=== PATIENT | female | born 1975 | race American Indian/Alaskan Native ===

== ENCOUNTER 2016-12-16 07:48 | Emergency (ER) | payer BC ==
[2016-12-16 07:48] VITALS: BMI 23.6
[2016-12-16 07:55] VITALS: BP 106/72; PULSE 71; RESP 20; TEMP 97.3; O2SAT 100
--- NOTE | 2016-12-16 09:11 | ED PDOC ---
HPI: General Adult Time Seen by Provider: 12/16/16 09:07 Chief Complaint (Nursing): Back Pain Chief Complaint (Provider): back pain History Per: Patient History/Exam Limitations: no limitations Additional Complaint(s): 41yo female w/ Hx disc herniation complaining of intermittent right lower back pain for 2 years. States in 2015 she received an injection for the back pain which helped her and since her daughter is a patient in the ED she chose to be seen as well. No incontinence, numbness or tingling. This episode of back pain has been ongoing for 3 days and is exactly the same as her chronic pain. States she took Tylenol which helped a little bit. She's been seen by other providers in the past for the same complaint. Also reports a complaint of headache since she walked into the ED. Reports history of migraines. No chest pain, shortness of breath. Tertiary complaint of left lower quadrant pain for 3 days. Pain is constant and associated with frequent urination for 1 year. Against Medical Advice - AMA Patient Left Against Medical Advice: The patient declines admission to the hospital and wishes to leave the Emergency Department. This action is against my medical advice. This decision was made with informed refusal. The patient was told that admission to the hospital is necessary. Explanation of the reasons why were discussed. The risks of leaving were explained to the patient and include, but are not limited to, worsening of known or currently unknown conditions, permanent disability and from undiagnosed or untreated conditions. The patient has the capacity to make this informed decision and understands my explanation of the current medical problem and risks of leaving. The patient voluntarily accepts these risks and signed an AMA form documenting our conversation. The patient was given the opportunity to ask questions and reconsider. The patient was encouraged to return to the Emergency Department at any time for further care. Past Medical History Reviewed: Historical Data, Nursing Documentation, Vital Signs Vital Signs: Last Vital Signs Temp 97.3 F L 12/16/16 07:54 Pulse 71 12/16/16 07:54 Resp 20 12/16/16 07:54 BP 106/72 12/16/16 07:54 Pulse Ox 100 12/16/16 13:44 - Medical History PMH: Back Problems, Gastritis, Migraine - Surgical History Surgical History: No Surg Hx - Family History Family History: States: Unknown Family Hx - Living Arrangements Living Arrangements: With Family - Immunization History Hx Tetanus Toxoid Vaccination: No Hx Influenza Vaccination: No Hx Pneumococcal Vaccination: No - Home Medications Home Medications: Ambulatory Orders Medication Instructions Recorded Famotidine [Pepcid] 20 mg PO DAILY #30 tab 07/14/16 - Allergies Allergies/Adverse Reactions: Allergies Allergy/AdvReac Type Severity Reaction Status Date / Time No Known Allergies Allergy Verified 12/16/16 07:58 Review of Systems ROS Statement: Except As Marked, All Systems Reviewed And Found Negative Gastrointestinal: Positive for: Abdominal Pain Genitourinary Female: Positive for: Frequency. Negative for: Incontinence Musculoskeletal: Positive for: Back Pain Neurological: Positive for: Headache. Negative for: Weakness, Numbness Physical Exam - Reviewed Nursing Documentation Reviewed: Yes Vital Signs Reviewed: Yes - Physical Exam Appears: Positive for: Well, Non-toxic, No Acute Distress Head Exam: Positive for: ATRAUMATIC, NORMAL INSPECTION, NORMOCEPHALIC Skin: Positive for: Warm, Dry Eye Exam: Positive for: EOMI, PERRL Cardiovascular/Chest: Positive for: Regular Rate, Rhythm Respiratory: Positive for: Normal Breath Sounds. Negative for: Rales, Rhonchi, Wheezing Gastrointestinal/Abdominal: Positive for: Soft, Tenderness (left lower quadrant) . Negative for: Guarding, Rebound Back: Positive for: Vertebral Tenderness (lumbar spine and paraspinal ) Extremity: Positive for: Normal ROM. Negative for: Tenderness Neurologic/Psych: Positive for: Alert, Oriented - Laboratory Results Result Diagrams: 12/16/16 11:17 12/16/16 11:17 - ECG O2 Sat by Pulse Oximetry: 100 (RA) Pulse Ox Interpretation: Normal - Progress Re-evaluation Time: 13:00 Condition: Re-examined, Improved Medical Decision Making Medical Decision Makin Differential diagnoses: back pain: acute on chronic back pain, disc herniation. left lower quadrant pain: ovarian cyst uti related complication, diverticulitis, headache: recurrent migraine headache. Plan: -labs -US Pelvis/Transvag -Reglan -Toradol -IV Fluids -reassess Disposition - Clinical Impression Clinical Impression: Back pain, Abdominal pain, Migraine headache - Patient ED Disposition Is Patient to be Admitted: No Doctor Will See Patient In The: Office Counseled Patient/Family Regarding: Studies Performed, Diagnosis, Need For Followup - Disposition Referrals: [facility] [Outside] Disposition: Against Medical Advice Disposition Time: 13:20 Condition: GOOD Additional Instructions: Follow up with your PCP in 2-3 days. Return for worsening Instructions: Migraine Headache (ED), Abdominal Pain (ED), Chronic Back Pain ( ED) Forms: [facility] ED School/Work Excuse Additional Comments - Additional Comments Additional Comments: Scribe Attestation: Documented by Mayito Dominguez acting as a scribe for Chase Kohler MD. Provider Scribe Attestation: All medical record entries made by the Scribe were at my direction and personally dictated by me. I have reviewed the chart and agree that the record accurately reflects my personal performance of the history, physical exam, medical decision making, and the department course for this patient. I have also personally directed, reviewed, and agree with the discharge instructions and disposition.
[2016-12-16] MEDS ORDERED: Sodium Chloride 0.9% 1,000 ML IV STA (09:38)
[2016-12-16 11:27] LABS: EOS # 0.1 K/uL (0.0-0.7); EOS % 1.3 % (0.0-4.0); HEMATOCRIT 35.7 % (34.0-47.0); LYMPH # 1.5 K/uL (1.0-4.3); LYMPH % 31.7 % (20.0-40.0); MEAN CELL VOLUME 92.9 fl (81.0-99.0); MEAN CORPUSCULAR HEMOGLOBIN 30.9 pg (27.0-31.0); MEAN CORPUSCULAR HGB CONC 33.3 g/dL (33.0-37.0); MEAN PLATELET VOLUME 8.4 fl (7.2-11.7); MONO # 0.3 K/uL (0.0-0.8); MONO % 6.3 % (0.0-10.0); NEUT # 2.8 K/uL (1.8-7.0); NEUT % 59.7 % (50.0-75.0); NRBC % 0.1 % (0.0-0.0); RED CELL DISTRIBUTION WIDTH 13.2 % (11.5-14.5); WHITE BLOOD COUNT 4.7 K/uL (4.8-10.8)
[2016-12-16 11:54] LABS: GFR AFRICAN-AMERICAN > 60
[2016-12-16 11:55] LABS: BLOOD UREA NITROGEN 12 mg/dl (7-17); CALCIUM 8.8 mg/dL (8.4-10.2); CARBON DIOXIDE 26 mmol/L (22-30); GLUCOSE,RANDOM 78 mg/dL (65-105)
[2016-12-16 12:06] LABS: CHLORIDE 105 mmol/L (98-107); POTASSIUM 3.7 MMOL/L (3.6-5.0); SODIUM 141 mmol/l (132-148)
--- NOTE | 2016-12-17 07:24 | CARD ---
APPROVED REPORT EKG Measurement Heart [id number] CT [id number] <Conclusion> Normal sinus rhythm Normal ECG
== END 2016-12-16 14:09 | disposition left against medical advice (07) ==
LOC: H.ER 07:48
DX: M54.5 Low back pain (principal); G43.909 Migraine, unspecified, not intractable, without status migrainosus; R10.32 Left lower quadrant pain
CPT/HCPCS: 80048; 81025; 85025; 93005; 96365; 96375; 99284; J1885; J2765; J7040

== ENCOUNTER 2017-09-30 18:03 | Emergency (ER) | payer BC ==
[2017-09-30 18:03] VITALS: BMI 23.6
[2017-09-30 18:08] VITALS: O2SAT 100
[2017-09-30] MEDS ORDERED: Sodium Chloride 0.9% 1,000 ML IV STA (18:28)
--- NOTE | 2017-09-30 18:28 | ED PDOC ---
HPI: Abdomen Time Seen by Provider: 09/30/17 18:15 Chief Complaint (Nursing): Abdominal Pain Chief Complaint (Provider): Abdominal History Per: Patient Additional Complaint(s): 42 yo female, PMH of Gastritis and Migraines, presents to ED with complaints of Umbilical pain radiating to the suprapubic area and right flank pain x 2 hours. Pt denie snay nausea or vomiting. No fever or chills. pt reports strong urge to urinate; however, unable to do so. Past Medical History Reviewed: Nursing Documentation, Vital Signs Vital Signs: Last Vital Signs Temp 97.9 F 09/30/17 18:35 Pulse 65 09/30/17 18:35 Resp 20 09/30/17 18:35 BP 117/78 09/30/17 18:35 Pulse Ox 100 09/30/17 18:35 - Medical History PMH: Back Problems, Gastritis, Migraine - Family History Family History: States: Unknown Family Hx - Living Arrangements Living Arrangements: With Family - Social History Current smoker - smoking cessation education provided: No Alcohol: Social Drugs: Denies - Immunization History Hx Tetanus Toxoid Vaccination: No Hx Influenza Vaccination: No Hx Pneumococcal Vaccination: No - Home Medications Home Medications: Ambulatory Orders Medication Instructions Recorded Famotidine [Pepcid] 20 mg PO DAILY #30 tab 07/14/16 - Allergies Allergies/Adverse Reactions: Allergies Allergy/AdvReac Type Severity Reaction Status Date / Time No Known Allergies Allergy Verified 12/16/16 07:58 Review of Systems ROS Statement: Except As Marked, All Systems Reviewed And Found Negative Gastrointestinal: Positive for: Abdominal Pain Genitourinary Female: Positive for: Frequency Physical Exam - Reviewed Nursing Documentation Reviewed: Yes Vital Signs Reviewed: Yes - Physical Exam Appears: Positive for: Non-toxic, No Acute Distress, Uncomfortable Head Exam: Positive for: ATRAUMATIC, NORMAL INSPECTION, NORMOCEPHALIC Skin: Positive for: Normal Color, Warm, DRY Eye Exam: Positive for: EOMI, Normal appearance, PERRL ENT: Positive for: Normal ENT Inspection Neck: Positive for: Normal, Painless ROM Cardiovascular/Chest: Positive for: Regular Rate, Rhythm Respiratory: Positive for: CNT, Normal Breath Sounds Gastrointestinal/Abdominal: Positive for: Bowel Sounds, Soft, Tenderness ( suprapubic) Back: Positive for: Normal Inspection Extremity: Positive for: Normal ROM Neurologic/Psych: Positive for: Alert, Oriented - Laboratory Results Result Diagrams: 09/30/17 18:55 - ECG O2 Sat by Pulse Oximetry: 100 Medical Decision Making Medical Decision Making: IV access established and diagnostics ordered IVF started, as well as Morphine and Zorfan Cath specimen obtained to relieve Pt and obtained UA specimen. 400 cc obtained Case endorsed to BISHOP Solo at 1999 pending diagnostic eview and re-eval Disposition - Clinical Impression Clinical Impression: Renal colic - Patient ED Disposition Is Patient to be Admitted: Transfer of Care - Disposition Disposition: Transfer of Care Disposition Time: 19:27 Condition: STABLE Forms: [facility] (Chinese)
[2017-09-30] MEDS ORDERED: Morphine 4 MG/ML VIAL ONE (18:30)
[2017-09-30 18:43] VITALS: BP 117/78; PULSE 65; RESP 20; TEMP 97.9
[2017-09-30 18:54] LABS: BASO # 0.1 K/uL (0.0-0.2); BASO % 1.2 % (0.0-2.0); EOS # 0.1 K/uL (0.0-0.7); EOS % 1.3 % (0.0-4.0); HEMOGLOBIN 13.6 g/dL (12.0-16.0); LYMPH # 2.7 K/uL (1.0-4.3); LYMPH % 42.3 % (20.0-40.0); MEAN CELL VOLUME 90.1 fl (81.0-99.0); MEAN CORPUSCULAR HEMOGLOBIN 29.8 pg (27.0-31.0); MEAN CORPUSCULAR HGB CONC 33.1 g/dL (33.0-37.0); MEAN PLATELET VOLUME 8.6 fl (7.2-11.7); MONO # 0.5 K/uL (0.0-0.8); NEUT # 3.1 K/uL (1.8-7.0); NEUT % 48.2 % (50.0-75.0); NRBC % 0.1 % (0.0-0.0); RBC 4.57 Mil/uL (3.80-5.20); RED CELL DISTRIBUTION WIDTH 13.1 % (11.5-14.5); WHITE BLOOD COUNT 6.4 K/uL (4.8-10.8)
[2017-09-30 19:15] LABS: ALBUMIN 4.5 g/dL (3.5-5.0); CALCIUM 9.7 mg/dL (8.4-10.2); GFR AFRICAN-AMERICAN > 60; GFR NON-AFRICAN AMERICAN > 60
[2017-09-30 19:20] LABS: URINE BILIRUBIN NEGATIVE (NEGATIVE); URINE BLOOD SMALL (NEGATIVE); URINE CLARITY CLEAR (Clear); URINE COLOR STRAW (YELLOW); URINE GLUCOSE (UA) NEG (Normal); URINE LEUKOCYTE ESTERASE NEG Leu/uL (Negative); URINE NITRATE NEGATIVE (NEGATIVE); URINE PROTEIN NEGATIVE (NEGATIVE); URINE UROBILINOGEN 0.2-1.0 mg/dL (0.2-1.0)
[2017-09-30 19:26] LABS: ALB/GLOB RATIO 1.1 (1.0-2.1); ALT/SGPT 35 U/L (9-52); AST/SGOT 30 U/L (14-36); BLOOD UREA NITROGEN 8 mg/dl (7-17)
[2017-09-30] MEDS ORDERED: cefTRIAXone IV 1 gm in Dextros 50 ML IVPB STA (20:11)
[2017-09-30] MEDS ORDERED: cefTRIAXone IV 1 gm in Dextros 50 ML IVPB ONE (20:16)
--- NOTE | 2017-09-30 22:09 | ED PDOC ---
- Laboratory Results Result Diagrams: 09/30/17 19:00 09/30/17 18:55 - ECG O2 Sat by Pulse Oximetry: 100 Medical Decision Making Medical Decision Making: Endorsed pending antibiotics and re-evaluation. Pt did feet enema and still unable to urinate. Urine bag placed. Discussed f/u with urologist. Disposition - Clinical Impression Clinical Impression: Renal colic, Urinary retention - POA Present On Arrival: None - Disposition Referrals: Logan Gallo Jr., MD [Staff Provider] - [facility] [Outside] Disposition: Routine/Home Disposition Time: 22:07 Condition: GOOD Additional Instructions: Please follow-up with urologist. Prescriptions: Ciprofloxacin [Cipro] 500 mg PO BID #10 tab Instructions: Acute Urinary Retention in Women (ED) Forms: [facility] (Estonian) Print Language: BERMUDIAN
--- NOTE | 2017-10-01 10:48 | CT ---
PROCEDURE: CT Abdomen and Pelvis without intravenous contrast HISTORY: renal colic COMPARISON: None. TECHNIQUE: Technique. Contrast Dose: None Radiation dose: Total exam DLP = 402 mGy-cm. This CT exam was performed using one or more of the following dose reduction techniques: Automated exposure control, adjustment of the mA and/or kV according to patient size, and/or use of iterative reconstruction technique. FINDINGS: LOWER THORAX: Posterior right lower lobe pleural-based nodularity -nonspecific -nodular inflammatory changes are inferred LIVER: Unremarkable. No gross lesion or ductal dilatation. GALLBLADDER AND BILE DUCTS: Unremarkable. PANCREAS: Unremarkable. No gross lesion or ductal dilatation. SPLEEN: Unremarkable. ADRENALS: Unremarkable. No mass. KIDNEYS AND URETERS: No definitive renal calculi. No hydronephrosis. No solid mass. No ureteral calculi associated with any proximal ureteral dilatation appreciated VASCULATURE: Multiple bilateral hemipelvic phleboliths No aortic aneurysm. BOWEL: Unremarkable. No obstruction. No gross mural thickening. . APPENDIX: Unremarkable. Normal appendix. PERITONEUM: Minimal physiologic appearing right cul-de-sac fluid fluid. No free air LYMPH NODES: Unremarkable. No enlarged lymph nodes. BLADDER: Unremarkable. REPRODUCTIVE: Enlarged lobulated uterus- fibroid involvement inferred BONES: No acute fracture. OTHER FINDINGS: None. IMPRESSION: No hydronephrosis or hydroureter. No renal calculi. No ureteral obstructing calculi noted. Bilateral hemipelvic phleboliths present-some coursing in close proximity with the distal ureters. No bladder calculi Right posterior lung base - nonspecific mild nodular pleural based thickening -a postinflammatory etiology is favored. . Enlarged lobulated uterus -with fibroids. Physiologic minimal right cul-de-sac free fluid . Comments: Preliminary report provided by [facility]. Additional right posterior lung base mild nodular pleural based thickening- likely postinflammatory added to this report
== END 2017-09-30 23:25 | disposition home or self-care (01) ==
LOC: H.ER 18:03
DX: N23 Unspecified renal colic (principal)
CPT/HCPCS: 74176; 80053; 81003; 81025; 82948; 84484; 85025; 87086; 96374; 96375; 99284; J0696; J2270; J2405; J7040